=== PATIENT | female | born 1975 | race Caucasian/White ===

== ENCOUNTER 2024-08-27 19:13 | Emergency (ER) | payer SELFPAY ==
[~2024-08-27] VITALS: Ht 172.7 cm; Wt 91.0 kg
[2024-08-27 19:23] VITALS: O2SAT 98
[2024-08-27 19:54] VITALS: BP 114/65; PULSE 102; RESP 18; TEMP 36.6; O2SAT 97
[2024-08-27 22:39] LABS: HIV 1/2 AB P24AG Negative (Negative)
[2024-08-27 23:31] LABS: HEPATITIS C VIR.AB 0.03 INDEXVAL (0.00-0.80)
== END 2024-08-27 21:50 | disposition home or self-care (01) ==
LOC: ER 19:13
DX: Z20.89 Contact with and (suspected) exposure to other communicable diseases (principal)
CPT/HCPCS: 36415; 99283